=== PATIENT | male | born 1995 | race Caucasian/White ===

== ENCOUNTER 2023-09-05 10:36 | Emergency (ER) | payer OTHER ==
[~2023-09-05] VITALS: Ht 167.6 cm; Wt 72.6 kg
[2023-09-05 10:59] VITALS: BP 118/71; PULSE 79; RESP 18; TEMP 98; O2SAT 98
[2023-09-05] MEDS ORDERED: LIDOCAINE 5% 1 EA PATCH TP STA (11:32)
[2023-09-05] MEDS ORDERED: methocarbamoL 500 MG TAB PO STA (11:32)
[2023-09-05] MEDS ORDERED: KETOROLAC 30 MG/ML VIAL IM ONE (11:35)
[2023-09-05] MEDS ORDERED: METH-1681 PO (13:12)
[2023-09-05] MEDS ORDERED: IBUP-2213 PO (13:12)
[2023-09-05] MEDS ORDERED: LID5T TP (13:12)
[2023-09-05 13:13] VITALS: O2SAT 98
== END 2023-09-05 13:17 | disposition home or self-care (01) ==
LOC: MED 10:36
DX: M54.50 Low back pain, unspecified (principal); Z79.899 Other long term (current) drug therapy
CPT/HCPCS: 72110; 96372; 99283; J1885